=== PATIENT | female | born 1960 | race Caucasian/White ===

== ENCOUNTER → 2019-07-11 12:15 | Outpatient (BNVA) | payer MEDICAID, SELFPAY | PROVIDERS: Family Provider Family Medicine; PCP Family Medicine; Visit Provider Specialist | DX: G43.709 Chronic migraine without aura, not intractable, without status migrainosus (principal); Z87.891 Personal history of nicotine dependence | CPT/HCPCS: 36415; 84443; 99213 ==

== ENCOUNTER 2019-07-12 08:33 | Outpatient (CLI) | payer MEDICAID, SELFPAY ==
--- NOTE | 2019-07-12 08:39 | XR_ITS ---
WS: [id number] XR shoulder RT min 2V* [id number] REASON FOR EXAM: Right shoulder pain FINDINGS: The acromioclavicular joint was normal. The clavicle scapula show no fractures or other dyscrasias. The glenoid humeral articulations were normal. XR/XR shoulder RT min 2V* [id number] IMPRESSION: Negative right shoulder for acute findings
== END 2019-07-12 08:34 | disposition home or self-care (01) ==
LOC: RAD 08:37
PROVIDERS: Family Provider Family Medicine; PCP Family Medicine; Visit Provider Family Medicine
DX: M25.511 Pain in right shoulder (principal)
CPT/HCPCS: 73030

== ENCOUNTER → 2020-03-07 14:40 | Outpatient (BNVA) | payer MEDICARE, MEDICAID, SELFPAY | PROVIDERS: Family Provider Family Medicine; PCP Family Medicine; Visit Provider Family Medicine | DX: Z13.6 Encounter for screening for cardiovascular disorders (principal); E03.9 Hypothyroidism, unspecified | CPT/HCPCS: 80053; 80061; 84443; 85025 ==

== ENCOUNTER → 2020-08-01 13:38 | Outpatient (BNVA) | payer MEDICARE, MEDICAID, SELFPAY | PROVIDERS: Family Provider Family Medicine; PCP Family Medicine; Visit Provider Specialist | DX: G43.709 Chronic migraine without aura, not intractable, without status migrainosus (principal); J44.9 Chronic obstructive pulmonary disease, unspecified; Z87.891 Personal history of nicotine dependence | CPT/HCPCS: 99213; 99214 ==

== ENCOUNTER → 2020-09-24 13:47 | Outpatient (BNVA) | payer MEDICARE, MEDICAID, SELFPAY | PROVIDERS: Family Provider Family Medicine; PCP Family Medicine; Visit Provider Family Medicine | DX: E03.9 Hypothyroidism, unspecified (principal) | CPT/HCPCS: 84443 ==

== ENCOUNTER → 2020-10-15 14:04 | Outpatient (BNVA) | payer MEDICARE, MEDICAID, SELFPAY | PROVIDERS: Family Provider Family Medicine; PCP Family Medicine; Visit Provider Family Medicine | DX: Z01.419 Encounter for gynecological examination (general) (routine) without abnormal findings (principal); Z12.31 Encounter for screening mammogram for malignant neoplasm of breast | CPT/HCPCS: 88175 ==

== ENCOUNTER 2020-11-05 11:35 | Outpatient (CLI) | payer MEDICARE, MEDICAID, SELFPAY ==
--- NOTE | 2020-11-05 12:00 | MM_ITS ---
WS: [id number] BILATERAL DIGITAL SCREENING MAMMOGRAPHY WITH CAD CLINICAL INFORMATION: screening mammogram HISTORY: Screening mammogram. No current complaints. COMPARISON: None. TECHNIQUE: Bilateral CC and MLO views. FINDINGS: Scattered fibroglandular densities bilaterally. No suspicious focal mass, asymmetry, calcifications, or architectural distortion. No evidence of malignancy. Punctate and lucent centered calcifications. MM/[place] [id number] IMPRESSION: BI-RADS: 2-Benign FOLLOW UP: 1 Year Follow-up Recommend return to annual screening mammography.
== END 2020-11-05 11:36 | disposition home or self-care (01) ==
LOC: RADSHAW 11:41
PROVIDERS: Family Provider Family Medicine; PCP Family Medicine; Visit Provider Family Medicine
DX: Z12.31 Encounter for screening mammogram for malignant neoplasm of breast (principal)
CPT/HCPCS: 77067

== ENCOUNTER → 2021-01-30 13:54 | Outpatient (BNVA) | payer MEDICARE, MEDICAID, SELFPAY | PROVIDERS: Family Provider Family Medicine; PCP Family Medicine; Visit Provider Specialist | DX: G43.709 Chronic migraine without aura, not intractable, without status migrainosus (principal); Z87.891 Personal history of nicotine dependence | CPT/HCPCS: 99213 ==

== ENCOUNTER → 2021-03-25 13:22 | Outpatient (BNVA) | payer MEDICARE, MEDICAID, SELFPAY | PROVIDERS: Family Provider Family Medicine; PCP Family Medicine; Visit Provider Family Medicine | DX: E03.9 Hypothyroidism, unspecified (principal); Z13.6 Encounter for screening for cardiovascular disorders | CPT/HCPCS: 80053; 80061; 84443; 85025 ==

== ENCOUNTER → 2021-06-24 14:36 | Outpatient (BNVA) | payer MEDICARE, MEDICAID, SELFPAY | PROVIDERS: Family Provider Family Medicine; PCP Family Medicine; Visit Provider Family Medicine | DX: E03.9 Hypothyroidism, unspecified (principal); M25.562 Pain in left knee; M25.561 Pain in right knee | CPT/HCPCS: 80048 ==

== ENCOUNTER → 2021-07-02 10:39 | Outpatient (BNVA) | payer MEDICARE, MEDICAID, SELFPAY | PROVIDERS: Family Provider Family Medicine; PCP Family Medicine; Visit Provider Surgery | DX: Z20.822 Contact with and (suspected) exposure to COVID-19 (principal) | CPT/HCPCS: 87635 ==

== ENCOUNTER 2021-07-04 07:34 | Day surgery (SDC) | payer MEDICARE, MEDICAID, SELFPAY ==
[2021-07-02 14:28] VITALS: BMI 34.0
--- NOTE | 2021-07-04 08:06 | P.ANESASSM_ITS ---
Pre-Anesthetic Assessment Height/Weight: Height 1.66 m Weight 94.347 kg Preop Diagnosis: Screening colonoscopy Operation Date: 07/04/21 08:45 Proposed Procedures p Colonoscopy 78049 Z12.11(Not Applicable) - Avery Menendez MD Familial anesthetic complications: PONV Was Beta Jane taken within 24 hours: N/A Was Clonidine taken within 24 hours: N/A Last intake: > 8hrs Social No alcohol and No tobacco Exam alert, oriented x 3, clear to auscultation bilaterally and regular rate & rhythm Airway Mallampati: Class II Dentition: chipped Pulmonary Chronic Obstructive Pulmonary Disease GI Gastroesophageal Reflux Disease Metabolic Thyroid Disease Anesthetic Plan ASA status: 2 Anesthesia: MAC Medications/Allergies Home Medications Medication Instructions Recorded Confirmed Last Taken Type budesonide-formoterol HFA 160 2 puff INHALATION BID #10.2 gm 07/04/19 07/02/21 Unknown Rx mcg-4.5 mcg/actuation aerosol inhaler (Symbicort) tiotropium bromide 18 mcg capsule 1 cap INHALATION DAILY #30 inh 07/04/19 07/02/21 Unknown Rx with inhalation device (Spiriva with HandiHaler) ipratropium 0.5 mg-albuterol 3 mg 3 ml INHALATION Q4H PRN 07/11/19 07/02/21 Unknown History (2.5 mg base)/3 mL nebulization soln sumatriptan succinate 100 mg See Rx Instructions PO .COMPLEX #9 01/30/21 07/02/21 Unknown Rx tablet (Imitrex) tab multivitamin 1 tab PO DAILY 03/25/21 07/02/21 Unknown History topiramate 100 mg tablet (Topamax) 100 mg PO BID tab 03/25/21 07/02/21 Unknown History omeprazole 40 mg capsule,delayed 40 mg PO DAILY #90 cap 04/23/21 07/02/21 Unknown Rx release levothyroxine 50 mcg capsule 50 mcg PO DAILY #90 cap 06/24/21 07/02/21 Unknown Rx meloxicam 7.5 mg tablet (Mobic) 7.5 mg PO BID 90 Days #180 tab 06/25/21 07/02/21 Unknown Rx amitriptyline 10 mg tablet 10 mg PO BID 07/02/21 07/02/21 Unknown History Allergies Allergy/AdvReac Type Severity Reaction Status Date / Time aspirin Allergy vomiting Verified 06/24/21 14:03 [facility] Anesthesia Medical History Chronic migraine COPD (chronic obstructive pulmonary disease) Hypothyroidism Surgical History History of esophagogastroduodenoscopy S/P appendectomy S/P left oophorectomy S/P tonsillectomy and adenoidectomy Family History Other CAD (coronary artery disease) Cancer Social History Smoking and tobacco status: former smoker Quit status (tobacco): has quit using tobacco Year quit tobacco: 2017 Alcohol intake: never History of recent travel: No Sexually active: No Data Anesthesia Cardiac Studies: No Data to Display
[2021-07-04 08:22] VITALS: BP 152/89; PULSE 69; RESP 16; TEMP 36.1; O2SAT 95
[2021-07-04] MEDS: sodium chloride 0.9% 1,000 ML 30 ML IV (08:34)
--- NOTE | 2021-07-04 09:12 | W.PM.OPSFHP ---
Same Day Surgery H&P Indication for Procedure/HPI DATE OF PROCEDURE: July 04, 2021 CHIEF COMPLAINT/INDICATIONFOR SURGICAL PROCEDURE: Screening colonoscopy PREOP DIAGNOSIS: Screening colonoscopy PLANNED PROCEDURE: Operation Date: 07/04/21 08:45 Proposed Procedures p Colonoscopy 84383 Z12.11(Not Applicable) - Avery Menendez MD 04/04/2021 This is a pleasant 60 years old female patient never had a colonoscopy before.? Denies bleeding per rectum or colon cancer history.? Patient reports constant diarrhea.? She gives history of COPD and uses no oxygen at home.??Patient reports that she gets sick after anesthesia and takes time to recover from that. Interim history 07/04/2021 Patient comes today for screening colonoscopy ROS All systems have been reviewed negative except as per the above or per problem list Medications/Allergies* Home Medications Medication Instructions Recorded Confirmed Type ipratropium 0.5 mg-albuterol 3 mg 3 ml INHALATION Q4H PRN 07/11/19 07/04/21 History (2.5 mg base)/3 mL nebulization soln multivitamin 1 tab PO DAILY 03/25/21 07/04/21 History topiramate 100 mg tablet (Topamax) 100 mg PO BID tab 03/25/21 07/04/21 History amitriptyline 10 mg tablet 10 mg PO BID 07/02/21 07/04/21 History Allergies/Adverse Reactions Allergy/AdvReac Type Severity Reaction Status Date / Time aspirin Allergy vomiting Verified 07/04/21 09:14 Current Medications: Generic Name Dose Route Start Last Admin Trade Name Freq PRN Reason Stop Dose Admin Sodium Chloride 1,000 mls @ 30 mls/hr 07/04/21 07:45 07/04/21 08:34 Sodium Chloride 0.9% IV 30 mls/hr .Q24H JESSE Administration Pertinent History/Comorbid Conditions* Medical History (Updated 03/26/21 @ 11:55 by Brandy Kapadia DO) Chronic migraine COPD (chronic obstructive pulmonary disease) Hypothyroidism Surgical History (Updated 04/23/21 @ 12:57 by Brandy Kapadia DO) History of esophagogastroduodenoscopy S/P appendectomy S/P left oophorectomy S/P tonsillectomy and adenoidectomy Family History (Updated 07/11/19 @ 09:24 by Samra Andujar LPN) CAD (coronary artery disease) Cancer Social History Smoking and tobacco status: former smoker Quit status (tobacco): has quit using tobacco Year quit tobacco: 2017 Alcohol intake: never History of recent travel: No Sexually active: No Pertinent Exam Findings alert, oriented x 3, regular rate & rhythm and procedure specific exam findings (Abdominal examination nontender nondistended soft) Recommendations Surgery/Procedure today (Colonoscopy with possible biopsy) Other Plans: Plan of care; After thorough history and physical examination and reviewing the chart, plan to perform screening colonoscopy. I discussed with the patient in details the risks,benefits,alternatives and indications.The risk of aspiration, bleeding, soft tissue injury, perforation of the colon and other potential concomitant complications were explained to the patient in details,also the potential need for Laproscoy/Laparotomy to repair any related complications including but not limited to colectomy and or Closotomy.The patient understood this well and did agree to proceed. Rationale was carefully and clearly discussed with the patient.Appropriate informed consent have been reviewed and signed All questions have been answered and all concerns have been addressed to patient's satisfaction. Verbal and written Instructions were given to the patient for colonoscopy prep Coding Level of Care Code Acute Machine Printer Hose for Yulisa Boateng
[2021-07-04 09:47] VITALS: BP 112/76; PULSE 80; RESP 18; TEMP 36.4; O2SAT 97
[2021-07-04 10:11] VITALS: BP 111/76; PULSE 68; RESP 20; O2SAT 99
--- NOTE | 2021-07-04 14:13 | ANE.PACU2 ---
Inpatient post-anesthesia follow up: Airway intact: Yes Vital signs: Temperature 97.5 F Pulse Rate 68 Respiratory Rate 20 Blood Pressure 111/76 Pulse Oximetry 99 Oxygen Delivery Me thod Room Air Oxygen Flow Rate Fraction of Inspir ed Oxygen Hydration adequate: Yes Nausea and vomiting: Yes Pain level: 2 Mental status: Baseline
== END 2021-07-04 10:29 | disposition home or self-care (01) ==
PROVIDERS: PCP Family Medicine; Visit Provider Surgery
PROC: 0DJD8ZZ Inspection of Lower Intestinal Tract, Via Natural or Artificial Opening Endoscopic (ICD-10-PCS; CPT 45378; principal; 2021-07-04 08:45)
DX: Z12.11 Encounter for screening for malignant neoplasm of colon (principal); K63.5 Polyp of colon; K57.30 Diverticulosis of large intestine without perforation or abscess without bleeding; J44.9 Chronic obstructive pulmonary disease, unspecified; K21.9 Gastro-esophageal reflux disease without esophagitis; Z87.891 Personal history of nicotine dependence
CPT/HCPCS: 45385; 88305; J2704; J7030

== ENCOUNTER → 2021-09-26 15:33 | Outpatient (BNVA) | payer MEDICARE, MEDICAID, SELFPAY | PROVIDERS: PCP Family Medicine; Visit Provider Specialist | DX: G43.711 Chronic migraine without aura, intractable, with status migrainosus (principal); Z87.891 Personal history of nicotine dependence | CPT/HCPCS: 99212; 99214 ==

== ENCOUNTER → 2021-12-16 14:40 | Outpatient (BNVA) | payer MEDICARE, MEDICAID, SELFPAY | PROVIDERS: PCP Family Medicine; Visit Provider Family Medicine | DX: E03.9 Hypothyroidism, unspecified (principal); N18.31 Chronic kidney disease, stage 3a | CPT/HCPCS: 80053; 84443 ==

== ENCOUNTER 2021-12-17 07:39 | Outpatient (CLI) | payer MEDICARE, MEDICAID, SELFPAY ==
--- NOTE | 2021-12-17 08:00 | US_ITS ---
WS: [id number] RIGHT UPPER QUADRANT ULTRASOUND HISTORY: R10.9 - Unspecified abdominal pain COMPARISON: None available. Liver: 17.2 cm in length. Mildly enlarged liver with coarsened echotexture. Very mild hepatic steatos is. No bile duct dilatation. Portal Vein: Normal hepatopetal flow with monophasic waveform. Gallbladder: Gallbladder is filled with stones with a large amount shadowing. Gallbladder wall is dif ficult to visualize due to the extensive cholelithiasis. CBD: 0.7 cm Pancreas: Normal size and echogenicity. Right kidney: 9.1 cm in length. Normal size and echogenicity. No hydronephrosis or mass. Aorta and IVC: Unremarkable abdominal aorta and IVC. No ascites. US/US gall bladder [id number] IMPRESSION: 1. Cholelithiasis. Gallbladder is filled with shadowing stones. 2. Common bile duct top normal at 7 mm. No intrahepatic duct dilatation. 3. Mild hepatic steatosis and hepatomegaly.
== END 2021-12-17 07:40 | disposition home or self-care (01) ==
LOC: RAD 07:42
PROVIDERS: PCP Family Medicine; Visit Provider Surgery
DX: R10.9 Unspecified abdominal pain (principal); K80.20 Calculus of gallbladder without cholecystitis without obstruction; K76.0 Fatty (change of) liver, not elsewhere classified; R16.0 Hepatomegaly, not elsewhere classified
CPT/HCPCS: 76705

== ENCOUNTER → 2021-12-26 14:32 | Outpatient (BNVA) | payer MEDICARE, MEDICAID, SELFPAY | PROVIDERS: PCP Family Medicine; Visit Provider Specialist | DX: G43.711 Chronic migraine without aura, intractable, with status migrainosus (principal) | CPT/HCPCS: 99213; 99214 ==

== ENCOUNTER → 2022-01-02 15:27 | Outpatient (BNVA) | payer MEDICARE, MEDICAID, SELFPAY | PROVIDERS: PCP Family Medicine; Visit Provider Surgery | DX: K80.20 Calculus of gallbladder without cholecystitis without obstruction (principal); K76.0 Fatty (change of) liver, not elsewhere classified | CPT/HCPCS: 99212 ==

== ENCOUNTER → 2022-01-08 12:39 | Outpatient (BNVA) | payer MEDICARE, MEDICAID, SELFPAY | PROVIDERS: PCP Family Medicine; Visit Provider Surgery | DX: K80.20 Calculus of gallbladder without cholecystitis without obstruction (principal); K76.0 Fatty (change of) liver, not elsewhere classified | CPT/HCPCS: 99213 ==

== ENCOUNTER → 2022-02-05 12:53 | Outpatient (BNVA) | payer MEDICARE, MEDICAID, SELFPAY | PROVIDERS: PCP Family Medicine; Visit Provider Surgery | DX: K80.20 Calculus of gallbladder without cholecystitis without obstruction (principal); K76.0 Fatty (change of) liver, not elsewhere classified | CPT/HCPCS: 99213 ==

== ENCOUNTER 2022-03-04 09:18 | Day surgery (SDC) | payer MEDICARE, MEDICAID, SELFPAY ==
[2022-03-04] VITALS (18 sets, daily range): BP systolic 100–123; BP diastolic 63–84; PULSE 56–91; RESP 13–20; TEMP 36.1–36.8; O2SAT 91–100
[2022-03-04] MEDS: heparin 5,000 unit/mL INJ 1 mL 3000 UNIT SUBCUT (10:08)
[2022-03-04] MEDS: acetaminophen 1,000 MG/100 ML PIGGYBACK 400 MG IV (10:13)
[2022-03-04] MEDS: sodium chloride 0.9% 1,000 ML 30 ML IV (10:14)
[2022-03-04] MEDS: ondansetron 2 mg/ML SDV 2 mL 4 MG IVP ×3 (10:22→15:31)
--- NOTE | 2022-03-04 10:30 | ANES.PREANE2 ---
Pre-Anesthetic Assessment Height/Weight: Height 1.7 m Weight 113.398 kg Temp Pulse Resp BP Pulse Ox O2 Del Method 98.2 F 91 18 115/84 95 03/04/22 09:45 03/04/22 09:45 03/04/22 09:45 03/04/22 09:45 03/04/22 09:45 03/04/22 09:50 Preop Diagnosis: Symptomatic cholelithiasis Operation Date: 03/04/22 11:00 Proposed Procedures p Laparoscopic Cholecystectomy 99946,K80.20(Not Applicable) - Avery Menendez MD Familial anesthetic complications: None Was Beta Jane taken within 24 hours: N/A Was Clonidine taken within 24 hours: N/A Last intake: Intake Last Liquid Date 03/03/22 Last Liquid Time 19:00 Last Solid Date 03/03/22 Last Solid Time 19:00 Social No alcohol and No tobacco former smoker Exam alert, oriented x 3, clear to auscultation bilaterally and regular rate & rhythm Airway Mallampati: Class II Dentition: chipped and other (missing) Pulmonary Chronic Obstructive Pulmonary Disease states she cannot lay flat without feeling like she can't catch her breath. requests not to be layed flat until after she is asleep. CV/HEM None reported Chronic Renal Insufficiency Hepatic None reported fatty liver GI Gastroesophageal Reflux Disease Metabolic Thyroid Disease Anesthetic Plan ASA status: 3 Anesthesia: General Risk of > 500 ml blood loss (7ml/kg in children): No Medications/Allergies Home Medications Medication Instructions Recorded Confirmed Last Taken Type budesonide-formoterol HFA 160 2 puff inhalation BID #10.2 grams 07/04/19 03/04/22 03/03/22 Rx mcg-4.5 mcg/actuation aerosol inhaler (Symbicort) tiotropium bromide 18 mcg capsule 1 cap inhalation DAILY #30 07/04/19 03/03/22 07/02/21 Rx with inhalation device (Spiriva inhalations with HandiHaler) ipratropium 0.5 mg-albuterol 3 mg 3 ml inhalation Q4H PRN Shortness 07/11/19 03/03/22 07/02/21 History (2.5 mg base)/3 mL nebulization Of Breath soln multivitamin 1 tab PO DAILY 03/25/21 03/04/22 03/03/22 History levothyroxine 50 mcg capsule 50 mcg PO DAILY #90 caps 12/18/21 03/04/22 03/04/22 Rx meloxicam 7.5 mg tablet 7.5 mg PO BID 90 days #180 tabs 12/18/21 03/04/22 03/03/22 Rx galcanezumab-gnlm 120 mg/mL 120 mg SUBCUT ONCE #1 mL 12/26/21 03/03/22 Unknown Rx subcutaneous pen injector (Emgality Pen) omeprazole 40 mg capsule,delayed 40 mg PO DAILY 03/03/22 03/04/22 03/04/22 History release topiramate 100 mg tablet (Topamax) 100 mg PO DAILY 03/03/22 03/04/22 03/04/22 History Allergies Allergy/AdvReac Type Severity Reaction Status Date / Time aspirin Allergy vomiting Verified 02/06/22 17:52 Current Medications Generic Name Dose Route Start Last Admin Trade Name Freq PRN Reason Stop Dose Admin Sodium Chloride 1,000 mls @ 30 mls/hr 03/04/22 09:30 03/04/22 10:14 Sodium Chloride 0.9% IV 03/05/22 09:29 30 mls/hr .Q24H JESSE Administration PFSH Anesthesia Medical History Chronic migraine Colon polyp COPD (chronic obstructive pulmonary disease) Diverticulosis large intestine w/o perforation or abscess w/bleeding Hypothyroidism Surgical History History of esophagogastroduodenoscopy S/P appendectomy S/P left oophorectomy S/P tonsillectomy and adenoidectomy Family History Other CAD (coronary artery disease) Cancer Social History Smoking and tobacco status: former smoker Quit status (tobacco): has quit using tobacco Year quit tobacco: 2017 Alcohol intake: never History of recent travel: No Sexually active: No Data Anesthesia Cardiac Studies: No Data to Display
--- NOTE | 2022-03-04 12:44 | W.PM.OPSUD ---
Surgery/Procedure H&P Update DATE OF PROCEDURE: March 04, 2022 DATE H&P PERFORMED: 02/05/22 H&P UPDATE INFORMATION: I have reviewed H&P completed within last 30 days, I have examined patient prior to procedure and Changes to prior documentation as noted here (Patient lost 13 pounds on liquid protein diet) PREOP DIAGNOSIS: Symptomatic cholelithiasis PRIMARY INDICATION FOR PROCEDURE: The same PLANNED PROCEDURE: Operation Date: 03/04/22 11:00 Proposed Procedures p Laparoscopic Cholecystectomy 39541,K80.20(Not Applicable) - Avery Menendez MD
[2022-03-04] MEDS: ampicillin-sulbactam 3 GM in sodium chloride 0.9% (plus) 50 ML IV (13:03)
[2022-03-04] MEDS: lidocaine 2% INJ 20 mL INJECTION (13:36)
--- NOTE | 2022-03-04 14:17 | P.OP_ITS ---
Operative Report Date of procedure: March 04, 2022 Pre-op diagnosis: Preop Diagnosis Symptomatic cholelithiasis Post-op diagnosis: same Post-op findings: Chronic calculus cholecystitis Procedure done: 1-Laparoscopic cholecystectomy 2-Excision of Lymph node of [place] Implants: Surgicel at the gallbladder fossa Specimens removed/disposition: Gallbladder and contents Lymph node Of [place] Surgeon: Avery Menendez MD Real Estate Broker: Surgical techjero Ortiz Circulating nurse Anne Marie Anesthesia: General (FARM CONSULTANT Nyla) Estimated blood loss (mL): 15 Procedure: Patient was identified in the holding area and taken back to the operative suite, placed in supine position intubated by anesthesia . Time-out was done verifying the patient's name/date of /planned procedure and destination after the procedure, all were in agreement. SCDs confirmed to be functioning, preoperative antibiotics administered per protocol, and beta marely protocol was confirmed. Patient was appropriately secured to the table, footboard was applied to the OR table, before prep and drape anesthesia was asked to tilt the table back and forth to make sure that the patient is appropriately secured and she was. Prep and drape of the abdomen was done under the usual sterile technique, followed by that infraumbilical skin incision using a previous scar,skin incisio n was done by a 15 blade knife, and stay sutures were applied to the fascia and Gan trocar technique was used to enter the abdominal without injuring any abdominal viscera, started by low flow gas insufflation followed by a high flow, started with a 10 mm laparoscope and under direct vision there was no evidence of any injuries, the scope then switched to a 30? ,10 millimeter scope and under direct visualization 5 millimeter trocar was inserted in the epigastric region followed by two 5 mm trocars were inserted in the right upper quadrant that was done after injection of local lidocaine 2% at all incision sites. Gallbladder showed chronic calculus cholecystitis Patient was then positioned in the head up and tilted to the left. Ratcheted forceps were introduced into the lateral most 5mm port and was applied unto the fundus of the gallbladder cephalad and using Bullet forceps the infundibulum of the gallbladder was retracted laterally. Using [place] forceps then L-hook cautery to dissect the peritoneum overlying the Calot's triangle which was then opened medially and laterally until the cystic duct and the cystic artery were skeletonized. Dissection was carried along the body of the gallbladder and after ensuring critical view of safety was identfied. Cystic duct and cystic artery where seen connected to the gallbladder. Clips were applied on the cystic duct towards the common bile duct 1 towards the gallbladder then divided is in sharp scissors, 2 clips were then applied onto the cystic artery and 1 towards the gallbladder and divided by sharp scissors. Additional pursing vessel was clipped and divided. Lymph node of [place] was dissected and sent separately. Dissection was then carried along of the gallbladder from the gallbladder fossa using cautery as well as sharp dissection with heat energy. The gallbladder then was dissected out from the gallbladder fossa totally , cholecystectomy was then achieved and was placed in an Endo Catch bag and then retrieved from the Gan trocar site under direct visualization using a 5 mm 30? scope through the epigastric trocar, specimen was then passed to the circulating nurse to go for permanent pathology,irrigation and hemostasis was done to the gallbladder fossa after hemostasis was secured, pieces of Surgicel were placed at the gallbladder fossa. Final survey laparoscopy was done that showed no injuries. Suction irrigation was obtained The Infraumbilical fascial defect was then closed using interrupted number one PDS sutures using a fascial closure device;Sushil Luu under direct visualization following that Gas was allowed to deflate,Trocars were then taken out under direct vision there was no evidence of bleeding. Specimen was passed to the circulating nurse for permanent pathology. No drains were placed and the Infraumbilical incision as well as all trocar sites were closed by 3/0 Vicryl followed by 4-0 Monocryl to approximate the skin edges of the incisions , dressing was applied in the form of surical glue and the patient patient got extubated and was taken to recovery area in a stable condition. Count of sponges,needles and instruments were completed at the end of the procedure I was present for the whole entire procedure.
[2022-03-04] MEDS: fentaNYL 50 mcg/mL INJ 2mL IVP (15:22)
[2022-03-04] MEDS: HYDROcodone-acetaminophen 5-325 mg Tablet 1 TAB PO (16:30)
--- NOTE | 2022-03-04 17:00 | ANE.PACU2 ---
Inpatient post-anesthesia follow up: Airway intact: Yes Vital signs: Temperature 97.0 F Pulse Rate 64 Respiratory Rate 18 Blood Pressure 120/79 Pulse Oximetry 95 Oxygen Delivery Me thod Room Air Oxygen Flow Rate 2 Fraction of Inspir ed Oxygen Hydration adequate: Yes Nausea and vomiting: No Pain level: 1 Mental status: Baseline
== END 2022-03-04 17:00 | disposition home or self-care (01) ==
PROVIDERS: PCP Family Medicine; Visit Provider Surgery
PROC: 0FT44ZZ Resection of Gallbladder, Percutaneous Endoscopic Approach (ICD-10-PCS; CPT 47562; principal; 2022-03-04 11:00)
DX: K80.10 Calculus of gallbladder with chronic cholecystitis without obstruction (principal); K76.0 Fatty (change of) liver, not elsewhere classified; J44.9 Chronic obstructive pulmonary disease, unspecified; K21.9 Gastro-esophageal reflux disease without esophagitis; E03.9 Hypothyroidism, unspecified; Z87.891 Personal history of nicotine dependence
CPT/HCPCS: 38500; 47562; 88304; 88305; J0295; J1100; J1644; J2250; J2405; J2704; J2710; J3010; J3490; J7030

== ENCOUNTER → 2022-03-17 13:50 | Outpatient (BNVA) | payer MEDICARE, MEDICAID, SELFPAY | PROVIDERS: PCP Family Medicine; Visit Provider Surgery | DX: Z98.890 Other specified postprocedural states (principal) | CPT/HCPCS: 99024 ==

== ENCOUNTER → 2022-04-28 13:26 | Outpatient (BNVA) | payer MEDICARE, MEDICAID, SELFPAY | PROVIDERS: PCP Family Medicine; Visit Provider Surgery | DX: Z09 Encounter for follow-up examination after completed treatment for conditions other than malignant neoplasm (principal) | CPT/HCPCS: 99024 ==

== ENCOUNTER 2022-06-16 15:29 | Outpatient (CLI) | payer MEDICARE, MEDICAID, SELFPAY ==
[2022-06-16 15:53] LABS: Basophils # 0.1 10^3/uL (0.0-0.1); Eosinophils # 0.3 10^3/uL (0.0-0.8); Eosinophils % 3.4 %; Hematocrit 42.4 % (37.0-47.0); Hemoglobin 13.7 g/dL (11.5-15.3); Lymphocytes # 2.8 10^3/uL (0.8-4.8); Lymphocytes % 27.9 %; Mean Corpuscular HGB Conc 32.3 g/dL (30.0-36.0); Mean Corpuscular Hemoglobin 30.5 pg (28.0-34.0); Mean Corpuscular Volume 94.4 fl (81-99); Mean Platelet Volume 10.2 fL (7.4-10.4); Monocytes # 0.7 10^3/uL (0.2-0.9); Monocytes % 6.7 %; Neutrophils # 6.12 10^3/uL (1.8-7.7); Neutrophils % 60.8 %; Nucleated Red Blood Cells % 0 %; Platelet Count 292 10^3/cmm (130-400); Red Blood Count 4.49 10^6/uL (4.1-5.3); Red Cell Distribution Width 13.1 % (12.1-15.1); White Blood Count 10.1 10^3/uL (4.0-10.0)
[2022-06-16 16:38] LABS: Alanine Aminotransferase 20 U/L (0-33); Albumin Level 4.5 g/dL (3.5-5.2); Alkaline Phosphatase 139 U/L (35-105); Anion Gap 14.8 (5-19); Aspartate Amino Transferase 20 U/L (0-32); Blood Urea Nitrogen 15 mg/dL (6-20); Calcium 9.6 mg/dL (8.5-10.5); Carbon Dioxide 23 mmol/L (22-29); Chloride 106 mmol/L (98-107); Chol HDL Ratio 3.43 mg/dL (0.0-4.40); Cholesterol 199 mg/dL (0-200); Globulin 3.1 g/dL (1.3-4.6); Glomerular Filtration Rate 50.8 mL/min (90-130); Glucose 102 mg/dL (65-115); HDL Cholesterol 58 mg/dL (60-100); LDL Cholesterol Calculated 108 mg/dL (50-129); LDL HDL Ratio 1.86 RATIO (0.00-3.22); Osmolality Calculated 291 mOsm/kg (285-295); Potassium 3.8 mmol/L (3.5-5.1); Sodium 140 mmol/L (136-145); Thyroid Stimulating Hormone 4.05 uIU/mL (0.27-4.20); Total Bilirubin 0.3 mg/dL (0.15-1.2); Total Protein 7.6 g/dL (6.6-8.7); Triglycerides 166 mg/dL (0-150)
== END 2022-06-16 15:30 | disposition home or self-care (01) ==
LOC: LAB 15:33
PROVIDERS: PCP Family Medicine; Visit Provider Family Medicine
DX: Z13.6 Encounter for screening for cardiovascular disorders (principal); E03.9 Hypothyroidism, unspecified; N18.31 Chronic kidney disease, stage 3a
CPT/HCPCS: 36415; 80053; 80061; 84443; 85025

== ENCOUNTER → 2022-12-08 13:46 | Outpatient (BNVA) | payer MEDICARE, MEDICAID, SELFPAY | PROVIDERS: PCP Family Medicine; Visit Provider Family Medicine | DX: N18.31 Chronic kidney disease, stage 3a (principal); E03.9 Hypothyroidism, unspecified | CPT/HCPCS: 80048; 84443 ==

== ENCOUNTER → 2022-12-25 13:07 | Outpatient (BNVA) | payer MEDICARE, MEDICAID, SELFPAY | PROVIDERS: PCP Family Medicine; Visit Provider Specialist | DX: G43.711 Chronic migraine without aura, intractable, with status migrainosus (principal) | CPT/HCPCS: 99214 ==

== ENCOUNTER 2022-12-29 13:34 | Outpatient (CLI) | payer MEDICARE, MEDICAID, SELFPAY ==
--- NOTE | 2022-12-29 13:43 | MM_ITS ---
WS: [id number] . BILATERAL SCREENING DIGITAL TOMOSYNTHESIS MAMMOGRAM WITH CAD HISTORY: screening mammogram COMPARISON: 11/05/2020 Bilateral CC and MLO views with tomosynthesis and synthetic mammography submitted. Computer aided det ection analyzed. Breast composition: There are scattered areas of fibroglandular density. No suspicious masses, microc alcifications or architectural distortion. Bilateral benign calcifications. MM/[place] [id number] IMPRESSION: BI-RADS: 2-Benign FOLLOW UP: 1 Year Follow-up
== END 2022-12-29 13:35 | disposition home or self-care (01) ==
LOC: RAD 13:40 → MOBLMAM 13:43
PROVIDERS: PCP Family Medicine; Visit Provider Family Medicine
DX: Z12.31 Encounter for screening mammogram for malignant neoplasm of breast (principal)
CPT/HCPCS: 77063; 77067; 80048; 84443

== ENCOUNTER → 2023-03-25 14:11 | Outpatient (BNVA) | payer MEDICARE, MEDICAID, SELFPAY | PROVIDERS: PCP Family Medicine; Visit Provider Specialist | DX: G43.719 Chronic migraine without aura, intractable, without status migrainosus (principal) | CPT/HCPCS: 99213 ==

== ENCOUNTER → 2023-06-18 14:49 | Outpatient (BNVA) | payer MEDICARE, MEDICAID, SELFPAY | PROVIDERS: PCP Family Medicine; Visit Provider Family Medicine | DX: E03.9 Hypothyroidism, unspecified (principal); N18.31 Chronic kidney disease, stage 3a | CPT/HCPCS: 80048; 84443 ==

== ENCOUNTER → 2023-12-15 14:39 | Outpatient (BNVA) | payer MEDICARE, SELFPAY | PROVIDERS: PCP Family Medicine | DX: N18.31 Chronic kidney disease, stage 3a (principal); M25.50 Pain in unspecified joint; E03.9 Hypothyroidism, unspecified | CPT/HCPCS: 80053; 80061; 84443; 84481; 85025; 85651; 86140; 86160; 86162; 86235; 86255; 86376 ==

== ENCOUNTER → 2024-03-23 11:13 | Outpatient (BNVA) | payer MEDICARE, SELFPAY | PROVIDERS: PCP Family Medicine; Visit Provider Specialist | DX: G43.711 Chronic migraine without aura, intractable, with status migrainosus (principal) | CPT/HCPCS: 99213 ==

== ENCOUNTER → 2024-06-20 10:40 | Outpatient (BNVA) | payer MEDICARE, SELFPAY | DX: Z13.6 Encounter for screening for cardiovascular disorders (principal); E03.9 Hypothyroidism, unspecified; N18.31 Chronic kidney disease, stage 3a | CPT/HCPCS: 80053; 80061; 84439; 84443 ==

== ENCOUNTER → 2024-10-18 10:19 | Outpatient (BNVA) | payer MEDICARE, SELFPAY | DX: E03.9 Hypothyroidism, unspecified (principal) | CPT/HCPCS: 80053; 84443 ==

== ENCOUNTER → 2025-03-20 10:24 | Outpatient (BNVA) | payer MEDICARE, SELFPAY | PROVIDERS: Visit Provider Specialist | DX: G43.711 Chronic migraine without aura, intractable, with status migrainosus (principal) | CPT/HCPCS: 99213 ==

== ENCOUNTER → 2025-04-13 10:21 | Outpatient (BNVA) | payer MEDICARE, SELFPAY | DX: E03.9 Hypothyroidism, unspecified (principal) | CPT/HCPCS: 80053; 80061; 84443 ==